=== PATIENT | male | born 2005 | race African-American/Black ===

== ENCOUNTER 2023-08-02 12:19 | Day surgery (SDC) | payer OTHER ==
[~2023-08-02] VITALS: Ht 167.6 cm; Wt 74.5 kg
[~2023-08-02 12:19] MED LIST: LR 1,000 ML IV SCH
[2023-08-02 13:02] VITALS: BP 126/81; PULSE 63; TEMP 97.6
[2023-08-02] MEDS ORDERED: fentaNYL 50 MCG/ML 2 ML VIAL IV PRN (13:15)
[2023-08-02] MEDS ORDERED: droPERidol 2.5 MG/ML 2 ML VIAL IV PRN (13:15)
[2023-08-02] MEDS ORDERED: Ondansetron 4 MG/2 ML VIAL IV PRN (13:15)
[2023-08-02] MEDS ORDERED: Promethazine 25 MG/ML 1 ML VIAL IV PRN (13:15)
[2023-08-02] MEDS ORDERED: hydrALAZINE 20 MG/ML 1 ML VIAL IV PRN (13:15)
[2023-08-02] MEDS ORDERED: HYDROmorphone 2 MG/1 ML VIAL IV PRN (13:15)
[2023-08-02] MEDS ORDERED: fentaNYL 50 MCG/ML 2 ML VIAL ONE (13:34)
[2023-08-02] MEDS ORDERED: Midazolam 2 MG/2 ML VIAL ONE (13:34)
[2023-08-02] MEDS ORDERED: Lidocaine PF 2% (20 MG/ML) 5 ML VIAL ONE (13:35)
[2023-08-02] MEDS ORDERED: Ondansetron 4 MG/2 ML VIAL ONE (13:36)
[2023-08-02] MEDS ORDERED: Glycopyrrolate 0.2 MG/ML 1 ML VIAL ONE (13:36)
[2023-08-02] MEDS ORDERED: dexAMETHasone 10 MG/ML VIAL ONE (13:36)
[2023-08-02] MEDS ORDERED: NS 10 ML IV ONE (13:36)
[2023-08-02] MEDS ORDERED: PERCOCET 325 MG1 TA2 PO (14:28)
[2023-08-02] MEDS ORDERED: oxyCODONE/Acetaminophen 5-325 MG TAB PO PRN (14:30)
[2023-08-02] MEDS ORDERED: Ketorolac 15 MG/ML VIAL IV PRN (14:30)
[2023-08-02] MEDS ORDERED: HYDROmorphone 2 MG/1 ML VIAL ONE (14:47)
[2023-08-02] MEDS ORDERED: Ketorolac 30 MG/ML VIAL ONE (15:26)
[2023-08-02 16:20] VITALS: BP 133/79; PULSE 69; TEMP 98.9
[2023-08-02 16:35] VITALS: BP 120/74; PULSE 83
[2023-08-02 16:50] VITALS: BP 127/87; PULSE 75
--- NOTE | 2023-08-02 17:58 | NUR ---
1620-REPORT OBTAINED FROM TRI CARLSON. PATIENT ARRIVED VIA CART TO [facility] [place] [facility], DROWSY ON ARRIVAL. VITAL SIGNS TAKEN, VSS. PATIENT UNABLE TO VERBALIZE PAIN NUMBER, FACES SCALE 4/10. PATIENT'S FRIEND WAITING AT BEDSIDE. PLAN OF CARE REVIEWED. INCISION SITE CDI, STERI STRIPS IN PLACE. SUPPORTIVE JOCKSTRAP REMAINS IN PLACE. 1635-VSS. PO INTAKE PROVIDED. 1700-PRN PAIN MEDICATION GIVEN FOR PAIN /. ENCOURAGED SPLINTING AND BREATHING EXERCISES. 1725-DISCHARGE INSTRUCTIONS REVIEWED WITH PT AND FRIEND, QUESTIONS INVITED. IV CATHETER DISCONTINUED, TIP INTACT. PRESSURE HELD AND BANDAGE APPLIED. PATIENT ASSISTED WITH DRESSING AND AMBULATED WITH ASSISTANCE TO BATHROOM, GAIT SLOW. PATIENT VOIDED WITHOUT COMPLAINT. 174-PATIENT DISCHARGED HOME TO [facility] VIA WHEELCHAIR, ACCOMPANIED BY FRIEND. ALL BELONGINGS AND D/C PAPERWORK SENT WITH PT.
== END 2023-08-02 17:42 | disposition home or self-care (01) ==
LOC: SDCO 12:19
DX: D29.22 Benign neoplasm of left testis (principal)
CPT/HCPCS: J0665; J0690; J1100; J1170; J1885; J2250; J2405; J2704; J3010; J7120; L8699